=== PATIENT | male | born 1985 | race American Indian/Alaskan Native ===

== ENCOUNTER 2018-03-05 11:11 | Emergency (ER) | payer OTHER ==
[2018-03-05] MEDS ORDERED: NA CHLORIDE 0.9% 1,000 ML ONE (12:19)
[2018-03-05 12:35] LABS: Absolute Lymphocytes (CBC) 2.3 K/uL (0.7-4.9); Absolute Monocytes 0.5 K/uL (0.1-1.3); Absolute Neutrophil 4.1 K/uL (1.8-8.0); Basophils % 1.3 % (0-1.3); Eosinophils % 2.6 % (0-4.4); Hematocrit 48.2 % (39.6-49.0); Lymphocytes % 32.5 % (15.3-44.8); MCV 82.2 fL (80-100); MPV 8.4 fL (7.6-11.3); Monocytes % 6.6 % (3.3-12.3); RBC Red Blood Cell Count 5.86 M/uL (4.33-5.43)
[2018-03-05 12:37] LABS: Glomerular Filtration Rate > 60 mL/min (>60)
[2018-03-05 12:39] LABS: Bicarbonate 30 mEq/L (21-31); Glucose Level 92 mg/dL (65-120); Lipase 36 U/L (22-51); Potassium 3.9 mEq/L (3.6-5.0); Sodium Level 138 mEq/L (135-145)
[2018-03-05 12:47] LABS: ALT/SGPT 16 IU/L (10-60); AST/SGOT 26 IU/L (10-42); Alkaline Phosphatase 65 IU/L (42-121); Amylase Level 56 U/L (28-100); BUN Blood Urea Nitrogen 8 mg/dL (6-20); Bilirubin Direct 0.1 mg/dL (0-0.2); Bilirubin Total 0.7 mg/dL (0.3-1.2); Glomerular Filtration Rate > 90 mL/min (=/>90); Protein, Total 8.4 g/dL (6.0-8.3)
[2018-03-05 13:07] LABS: C-Reactive Protein < 5.0 mg/L (<10.0)
[2018-03-05 13:23] LABS: Urine Blood NEGATIVE (NEG); Urine Glucose NEGATIVE (NEG); Urine Protein NEGATIVE (NEG); Urine Specific Gravity 1.015 (1.005-1.030); Urine pH 6.5 (5.0-7.0)
--- NOTE | 2018-03-05 14:22 | RAD REPORT ---
EXAM DESCRIPTION: CT - Abdomen Pelvis W Contrast - 03/05/2018 2:05 pm CLINICAL HISTORY: Abdominal pain COMPARISON: None. TECHNIQUE: Biphasic, helical CT imaging of the abdomen and pelvis was performed following 100 ml non -ionic IV contrast. No oral contrast administered. All CT scans are performed using dose optimization technique as appropriate and may include automated exposure control or mA/KV adjustment according to patient size. FINDINGS: No suspicious findings in the lung bases. An 8 millimeter granuloma seen in the posterior gutter on the right. No pericardial effusion. The liver, spleen, and pancreas show no suspicious findings. Gallbladder is mostly contracted. No acu te gallbladder or biliary tree finding suspected. Symmetric renal function is seen with no hydronephrosis or suspicious renal mass. No pyelonephritis o r acute renal parenchymal process. No adrenal abnormality seen. Urinary bladder, prostate gland and s eminal vesicles also within normal range. No dilated bowel loops or bowel wall thickening. The appendix is normal. No free air, free fluid or i nflammatory stranding. No hernia, mass or bulky lymphadenopathy. No suspicious bony findings. IMPRESSION: Contrast enhanced CT abdomen and pelvis showing no significant or suspicious finding.
--- NOTE | 2018-03-05 14:36 | EDPHYS ---
Physician Documentation [facility] Name: Lc Robbins Age: 32 yrs Sex: Male : 1985 Arrival Date: 03/05/2018 Time: 11:14 Bed 16 Private MD: ED Physician Reggie Avila HPI: 03/05 11:59 This 32 yrs old Male presents to ER via Ambulatory with complaints of jr8 Decreased Appetite. 11:59 The patient presents with abdominal pain in the lower abdomen. Onset: The jr8 symptoms/episode began/occurred gradually, 1 month(s) ago. The symptoms do not radiate. Associated signs and symptoms: Pertinent positives: weight loss. The symptoms are described as dull, vague. Modifying factors: The symptoms are alleviated by nothing, the symptoms are aggravated by food. Severity of pain: At its worst the pain was mild in the emergency department the pain is unchanged. The patient has not experienced similar symptoms in the past. The patient has not recently seen a physician. 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 Language barrier present. Contacted friend for translation. Stated that patient had been having loss of appetite. Pressure/vague sensation to left lower abdomen, decreased bowel movements, and weight loss over past month. Also has had joint aching and pain. Denies fevers, bleeding, rash, diarrhea, vomiting. Historical: - Allergies: 11:22 No Known Allergies; hj - Home Meds: 11:22 None [Active]; hj - PMHx: 11:22 None; hj - PSHx: 11:22 None; hj - Immunization history:: Adult Immunizations unknown. - Social history:: Smoking status: unknown. ROS: 13:27 Eyes: Negative for injury, pain, redness, and discharge, ENT: Negative for injury, jr8 pain, and discharge, Neck: Negative for injury, pain, and swelling, Cardiovascular: Negative for chest pain, palpitations, and edema, Respiratory: Negative for shortness of breath, cough, wheezing, and pleuritic chest pain, Back: Negative for injury and pain, MS/Extremity: Negative for injury and deformity, Skin: Negative for injury, rash, and discoloration, Neuro: Negative for headache, weakness, numbness, tingling, and seizure. 13:27 Abdomen/GI: Positive for abdominal pain, Negative for nausea, vomiting, and diarrhea, abdominal distension, anorexia, dysphagia, hematemesis, black/tarry stool, rectal pain, rectal bleeding, bowel incontinence, flatulence. Exam: 14:33 Eyes: Pupils equal round and reactive to light, extra-ocular motions intact. Lids and jr8 lashes normal. Conjunctiva and sclera are non-icteric and not injected. Cornea within normal limits. Periorbital areas with no swelling, redness, or edema. ENT: Nares patent. No nasal discharge, no septal abnormalities noted. Tympanic membranes are normal and external auditory canals are clear. Oropharynx with no redness, swelling, or masses, exudates, or evidence of obstruction, uvula midline. Mucous membranes moist. Neck: Trachea midline, no thyromegaly or masses palpated, and no cervical lymphadenopathy. Supple, full range of motion without nuchal rigidity, or vertebral point tenderness. No Meningismus. Cardiovascular: Regular rate and rhythm with a normal S1 and S2. No gallops, murmurs, or rubs. Normal PMI, no JVD. No pulse deficits. Respiratory: Lungs have equal breath sounds bilaterally, clear to auscultation and percussion. No rales, rhonchi or wheezes noted. No increased work of breathing, no retractions or nasal flaring. Back: No spinal tenderness. No costovertebral tenderness. Full range of motion. Skin: Warm, dry with normal turgor. Normal color with no rashes, no lesions, and no evidence of cellulitis. MS/ Extremity: Pulses equal, no cyanosis. Neurovascular intact. Full, normal range of motion. Neuro: Awake and alert, GCS 15, oriented to person, place, time, and situation. Cranial nerves II-XII grossly intact. Motor strength 5/5 in all extremities. Sensory grossly intact. Cerebellar exam normal. Normal gait. 14:33 Abdomen/GI: Inspection: abdomen appears normal, Bowel sounds: active, all quadrants, Palpation: soft, in all quadrants, mild abdominal tenderness, in the left lower quadrant, mass, is not appreciated, rebound tenderness, is not appreciated, voluntary guarding, is not appreciated, involuntary guarding, is not appreciated, no appreciated organomegaly, Indicators: McBurney's point is not tender, Vivas's sign is negative, Rovsing's sign is negative, Liver: no appreciated palpable abnormalities, tenderness, is not appreciated. Vital Signs: 11:23 BP 123 / 78; Pulse 76; Resp 18; Temp 99.2(TE); Pulse Ox 97% on R/A; Weight 62 kg; hj Height 5 ft. 3 in. (160.02 cm); Pain 3/10; 13:14 BP 121 / 77; Pulse 63; Resp 18; Pulse Ox 100% on R/A; aj1 14:22 BP 111 / 69; Pulse 60; Resp 15; Pulse Ox 100% on R/A; mh5 15:22 BP 117 / 74; Pulse 60; Resp 18; Pulse Ox 99% on R/A; aj1 11:23 Body Mass Index 24.21 (62.00 kg, 160.02 cm) hj MDM: 11:25 Patient medically screened. rn 14:33 Data reviewed: vital signs, nurses notes, lab test result(s), radiologic studies, CT jr8 scan, and as a result, I will discharge patient. Data interpreted: Pulse oximetry: on room air is 100 %. Interpretation: normal. Counseling: I had a detailed discussion with the patient and/or guardian regarding: the historical points, exam findings, and any diagnostic results supporting the discharge/admit diagnosis, lab results, radiology results, the need for outpatient follow up, a family practitioner, to return to the emergency department if symptoms worsen or persist or if there are any questions or concerns that arise at home. 03/05 11:48 Order name: Amylase, Serum; Complete Time: 13:03/05 11:48 Order name: Basic Metabolic Panel; Complete Time: 13:03/05 11:48 Order name: CBC with Diff; Complete Time: 13:03/05 11:48 Order name: Creatinine for Radiology; Complete Time: 12:57 03/05 11:48 Order name: Hepatic Function; Complete Time: 13:03/05 11:48 Order name: Lipase; Complete Time: 13:03/05 11:48 Order name: IV Saline Lock; Complete Time: 12:18 03/05 11:48 Order name: ESR; Complete Time: 13:03/05 11:48 Order name: CRP; Complete Time: 13:03/05 11:48 Order name: [place] Screen Profile; Complete Time: 12:57 03/05 13:17 Order name: Urine Dipstick--Ancillary (enter results) bd 03/05 13:17 Order name: Urine Dipstick-Ancillary; Complete Time: 13:27 EDMS 03/05 13:28 Order name: CT Abd/Pelvis - W/Contrast; Complete Time: 14:33 jr8 03/05 11:48 Order name: Labs collected and sent; Complete Time: 12:18 jr8 03/05 11:48 Order name: Urine Dipstick-Ancillary (obtain specimen); Complete Time: 13:13 jr8 Administered Medications: 12:26 Drug: NS 0.9% 1000 ml Route: IV; Rate: 1000 ml; Site: left antecubital; aj 15:19 Follow up: IV Status: Completed infusion; IV Intake: 1000ml aj Disposition: 18:33 Co-signature as Attending Physician, Reggie Avila MD. rn Disposition: 03/05/18 14:35 Discharged to Home. Impression: Malaise and fatigue. - Condition is Stable. - Discharge Instructions: Abdominal Pain, Adult, Fatigue. - Prescriptions for Zofran 4 mg Oral Tablet - take 1 tablet by ORAL route every 12 hours As needed; 20 tablet. - Medication Reconciliation Form, Thank You Letter, Antibiotic Education, Prescription Opioid Use form. - Follow up: Private Physician; When: 1 week; Reason: Recheck today's complaints, Continuance of care, Re-evaluation by your physician. - Problem is new. - Symptoms have improved. Signatures: Dispatcher [employer] Meg Evangelista RN RN aj1 Reggie Avila MD MD rn Roszak, Josh, PA PA jr8 Chuy Liao RN RN hj
--- NOTE | 2018-03-05 14:36 | ER ---
Nurse's Notes [facility] Name: Lc Robbins Age: 32 yrs Sex: Male : 1985 Arrival Date: 03/05/2018 Time: 11:14 Bed 16 Private MD: Diagnosis: Malaise and fatigue Presentation: 03/05 11:15 Presenting complaint: Patient states: used language line, [place] national; per M/V [facility] report, pt is complaining of irregular bowel movements, constipation for the past 6-7 days, loss of appetite, and painful joints, it started about a month ago; denies bleeding, denies vomiting;. Transition of care: patient was not received from another setting of care. Onset of symptoms was March 05, 2018. Care prior to arrival: None. 11:15 Method Of Arrival: Ambulatory 11:15 Acuity: JENIFFER 3 hj Triage Assessment: 11:22 General: Appears in no apparent distress. uncomfortable, Behavior is calm, cooperative, hj appropriate for age. Pain: Complains of pain in abdomen Pain currently is 3 out of 10 on a pain scale. Historical: - Allergies: 11:22 No Known Allergies; hj - Home Meds: 11:22 None [Active]; hj - PMHx: 11:22 None; hj - PSHx: 11:22 None; hj - Immunization history:: Adult Immunizations unknown. - Social history:: Smoking status: unknown. Screenin:30 Abuse screen: Denies threats or abuse. Denies injuries from another. Nutritional aj1 screening: No deficits noted. Tuberculosis screening: No symptoms or risk factors identified. 15:23 Fall Risk None identified. aj1 Assessment: 11:30 General: Appears in no apparent distress. comfortable, Behavior is calm, cooperative, aj1 appropriate for age. Pain: Complains of pain in abdomen Pain does not radiate. Pain currently is 3 out of 10 on a pain scale. Quality of pain is described as dull, Pain began one month ago Alleviated by nothing. Aggravated by eating. Neuro: Level of Consciousness is awake, alert, obeys commands. Cardiovascular: Patient's skin is warm and dry. Respiratory: Airway is patent Respiratory effort is even, unlabored, Respiratory pattern is regular, symmetrical. GI: Abdomen is flat, non-distended, Bowel sounds present X 4 quads. Abd is soft X 4 quads Abdomen is tender to palpation in left lower quadrant Reports constipation, Patient currently denies diarrhea, vomiting. : No signs and/or symptoms were reported regarding the genitourinary system. EENT: No signs and/or symptoms were reported regarding the EENT system. Derm: No signs and/or symptoms reported regarding the dermatologic system. Skin is pink, warm \T\ dry. normal. Musculoskeletal: No signs and/or symptoms reported regarding the musculoskeletal system. Circulation, motion, and sensation intact. 12:30 Reassessment: Patient appears in no apparent distress at this time. No changes from aj1 previously documented assessment. Patient and/or family updated on plan of care and expected duration. Pain level reassessed. Patient is alert, oriented x 3, equal unlabored respirations, skin warm/dry/pink. 13:15 Reassessment: Patient appears in no apparent distress at this time. No changes from aj1 previously documented assessment. Patient and/or family updated on plan of care and expected duration. Pain level reassessed. Patient is alert, oriented x 3, equal unlabored respirations, skin warm/dry/pink. 14:16 Reassessment: Patient appears in no apparent distress at this time. No changes from aj1 previously documented assessment. Patient and/or family updated on plan of care and expected duration. Pain level reassessed. Patient is alert, oriented x 3, equal unlabored respirations, skin warm/dry/pink. 15:22 Reassessment: Patient appears in no apparent distress at this time. No changes from aj1 previously documented assessment. Patient and/or family updated on plan of care and expected duration. Pain level reassessed. Patient is alert, oriented x 3, equal unlabored respirations, skin warm/dry/pink. Vital Signs: 11:23 BP 123 / 78; Pulse 76; Resp 18; Temp 99.2(TE); Pulse Ox 97% on R/A; Weight 62 kg; hj Height 5 ft. 3 in. (160.02 cm); Pain 3/10; 13:14 BP 121 / 77; Pulse 63; Resp 18; Pulse Ox 100% on R/A; aj1 14:22 BP 111 / 69; Pulse 60; Resp 15; Pulse Ox 100% on R/A; 5 15:22 BP 117 / 74; Pulse 60; Resp 18; Pulse Ox 99% on R/A; aj1 11:23 Body Mass Index 24.21 (62.00 kg, 160.02 cm) ED Course: 11:14 Patient arrived in ED. mr 11:21 Triage completed. hj 11:23 Arm band placed on right wrist. hj 11:24 Reggie Avila MD is Attending Physician. rn 11:25 Justin Hilario PA is PHCP. jr8 11:30 Patient has correct armband on for positive identification. Bed in low position. Call aj1 light in reach. Side rails up X 1. 11:30 No provider procedures requiring assistance completed. aj1 12:01 Meg Kirby, RN is Primary Nurse. aj1 12:05 Inserted saline lock: 20 gauge in left antecubital area, using aseptic technique. Blood aj1 collected. 13:[address] via wheelchair. sj 14:04 CT completed. Patient tolerated procedure well. Patient moved back from CT. 14:05 CT Abd/Pelvis - W/Contrast In Process Unspecified. EDMS 15:21 IV discontinued, intact, bleeding controlled, No redness/swelling at site. Pressure aj1 dressing applied. 16:18 Primary Nurse role handed off by Meg Kirby RN jr8 Administered Medications: 12:26 Drug: NS 0.9% 1000 ml Route: IV; Rate: 1000 ml; Site: left antecubital; aj1 15:19 Follow up: IV Status: Completed infusion; IV Intake: 1000ml aj1 Intake: 15:19 IV: 1000ml; Total: 1000ml. aj1 Outcome: 14:35 Discharge ordered by . jr8 15:22 Discharged to home ambulatory. aj1 15:22 Condition: good 15:22 Discharge instructions given to patient, friend, Instructed on discharge instructions, follow up and referral plans. medication usage, Demonstrated understanding of instructions, follow-up care, medications, Prescriptions given X 1. 15:26 Patient left the ED. aj1 16:22 Patient left the ED. jr8 Signatures: Dispatcher [employer] EDMS Meg Kirby, RN Lucia Shrestha Jennifer Lee Reggie Avila MD MD rn Roszak, Josh, PA PA jr8 Chuy Liao RN RN hj Martinez, Maria [facility] Corrections: (The following items were deleted from the chart) :26 11:15 Presenting complaint: Patient states: per M/V [facility] report, pt is hj complaining of irregular bowel movements, constipation for the past 6-7 days, loss of appetite, and painful joints, it started about a month ago; denies bleeding, denies vomiting; hj 11:26 11:23 Pulse 76bpm; Resp 18bpm; Pulse Ox 97% RA; Temp 99.2F Temporal; 62 kg; Height 5 hj ft. 3 in.; BMI: 24.2; Pain 02/03; hj
== END 2018-03-05 16:22 | disposition home or self-care (01) ==
LOC: ER 11:11
DX: R53.81 Other malaise (principal); R53.83 Other fatigue
CPT/HCPCS: 36415; 74177; 80048; 80076; 81003; 82150; 83690; 85025; 85652; 86140; 86308; 96360; 96361; 99284; J7030; Q9967